=== PATIENT | female | born 1935 | race Caucasian/White ===

== ENCOUNTER 2021-11-07 06:28 | Day surgery (SDC) | payer MEDICARE, BC ==
[2021-11-07] VITALS (16 sets, daily range): BP systolic 120–157; BP diastolic 56–80
[~2021-11-07] VITALS: Ht 154.9 cm; Wt 77.8 kg
[2021-11-07] MEDS ORDERED: albumin 25% 100mL bottle x 1 IV PRN (06:55)
[2021-11-07] MEDS ORDERED: normal saline 1000ml 1,000 ML IV PRN (06:55)
[2021-11-07] MEDS ORDERED: ESOM40CA54 PO (07:09)
[2021-11-07] MEDS ORDERED: LORA-268 PO (07:09)
[2021-11-07] MEDS ORDERED: FURO20TA4 PO (07:09)
[2021-11-07] MEDS ORDERED: LEVO75TA PO (07:09)
[2021-11-07] MEDS ORDERED: AMLO10TA13 PO (07:09)
[2021-11-07] MEDS ORDERED: AMOXICILLIN/CLAV (07:09)
[2021-11-07] MEDS ORDERED: PRAM0.5T12 (07:09)
[2021-11-07] MEDS ORDERED: ROSU10TA28 PO (07:09)
[2021-11-07] MEDS ORDERED: CITA10TA93 PO (07:09)
[2021-11-07] MEDS ORDERED: CARV-50 PO (07:09)
[2021-11-07] MEDS ORDERED: TELM80TA9 PO (07:09)
[2021-11-07] MEDS ORDERED: MAGN400C PO (07:13)
[2021-11-07] MEDS ORDERED: CHOL100017 PO (07:13)
[2021-11-07] MEDS ORDERED: UBID100C45 PO (07:13)
[2021-11-07] MEDS ORDERED: IRON PO (07:13)
[2021-11-07 07:41] LABS: BASOPHILS # (AUTO) 0.1 X10'3 (0-0.2); BASOPHILS % (AUTO) 0.8 % (0-1); EOSINOPHILS # (AUTO) 0.3 X10'3 (0-0.9); EOSINOPHILS % (AUTO) 3.4 % (0-6); HEMOGLOBIN 9.8 g/dl (12.0-16.0); LYMPHOCYTES # (AUTO) 2.6 X10'3 (1.1-4.8); LYMPHOCYTES % (AUTO) 28.3 % (21-51); MEAN CORPUSCULAR HGB CONC 31.5 g/dL (33.0-36.5); MEAN CORPUSCULAR VOLUME 79.4 FL (78-98); MONOCYTES # (AUTO) 1.1 X10'3 (0-0.9); MONOCYTES % (AUTO) 12.3 % (2-12); NEUTROPHILS # (AUTO) 5.1 X10'3 (1.8-7.7); NEUTROPHILS % (AUTO) 55.2 % (42-75); PLATELET COUNT 272 X10'3 (140-440); RED CELL DISTRIBUTION WIDTH 21.9 % (11.5-14.5); WHITE BLOOD COUNT 9.2 X10'3 (4.5-11.0)
[2021-11-07] MEDS ORDERED: fentaNYL/PF 50MCG/1 ML 2ML syringe ONE (08:32)
[2021-11-07] MEDS ORDERED: gelatin sponge, absorbable (Gelfoam 12-7MM) sponge TP ONE (08:32)
[2021-11-07] MEDS ORDERED: LIDOcaine 1%/PF 5ML 10 MG/ML VIAL ONE (08:32)
[2021-11-07] MEDS ORDERED: midazolam 1 mg/ML 2ml injection ONE (08:32)
[2021-11-07] MEDS ORDERED: LIDOcaine 1% (10mg/ml) 2ml vial ONE (08:58)
[2021-11-07] MEDS ORDERED: HYDROcodone/acetaminophen 5mg/325mg tablet PO PRN ×2 (09:20)
--- NOTE | 2021-11-07 09:30 | NUR ---
Phoned daughter gave update and DC home time. Pt sitting up in bed eating string cheese and apple sauce and drinking coffee without issues.
[2021-11-07 10:27] LABS: ANISOCYTOSIS 3+; MICROCYTOSIS 1+; PLATELET ESTIMATE NORMAL
--- NOTE | 2021-11-07 11:30 | NUR ---
Daughter at bedside. DC instructions given to pt and daughter, both verbalize understanding.
== END 2021-11-07 12:40 | disposition home or self-care (01) ==
LOC: SSTAY O 06:28
PROVIDERS: ATTEND Radiology Vascular & Interventional Radiology
DX: C78.01 Secondary malignant neoplasm of right lung (principal); R91.8 Other nonspecific abnormal finding of lung field; C56.2 Malignant neoplasm of left ovary; I10 Essential (primary) hypertension; E11.9 Type 2 diabetes mellitus without complications; E03.9 Hypothyroidism, unspecified; F32.9 Major depressive disorder, single episode, unspecified; F41.9 Anxiety disorder, unspecified; M10.9 Gout, unspecified; Z90.710 Acquired absence of both cervix and uterus; Z79.899 Other long term (current) drug therapy; Z98.890 Other specified postprocedural states
CPT/HCPCS: 32408; 71045; 85025; 87811; 99152; 99153; J2250; J3010; J3490; J7030; 77012; 85008; A4615